=== PATIENT | female | born 1975 | race Caucasian/White ===

== ENCOUNTER 2022-07-04 11:23 | Outpatient (CLI) | payer BC, SELFPAY ==
--- NOTE | 2022-07-04 11:30 | CRLHL7_ITS ---
For Patients: As a result of the Century Cures Act, medical imaging exams and procedure reports are released immediately into your electronic medical record. You may view this report before your referring provider. If you have questions, please contact your health care provider. BILATERAL SCREENING MAMMOGRAM WITH COMPUTER-AIDED DETECTION AND TOMOSYNTHESIS TECHNIQUE: CC and MLO views were obtained. These mammographic images have been obtained using full-field digital technique. These mammographic images were interpreted with the benefit of computer-aided detection. Breast Tomosynthesis was used in this interpretation. COMPARISON FILM: 04/06/20, 08/13/18, 03/20/17. FINDINGS: There are scattered areas of fibroglandular density IMPRESSION: There is no radiographic evidence for malignancy. ASSESSMENT: BI-RADS Category 1: Negative RECOMMENDATION: Routine screening mammogram in 1 year. A lay language report of this examination will be provided to the patient. Rolando Murcia M.D. Diagnostic Radiologist [email or web address] BERTA/Dictated by: Rolando Murcia MD @ 07/04/2022 12:35:00 PM (Electronically Signed)
== END 2022-07-04 11:24 | disposition home or self-care (01) ==
LOC: MAMMO 11:26
PROVIDERS: Visit Provider Family Medicine
DX: Z12.31 Encounter for screening mammogram for malignant neoplasm of breast (principal)
CPT/HCPCS: 77063; 77067

== ENCOUNTER 2024-12-12 08:36 | Outpatient (CLI) | payer BC, SELFPAY ==
--- NOTE | 2024-12-12 09:26 | P.ANES_ITS ---
Anesthesia Charges Start Date/Time Anesthesia Start Date: 12/12/24 Anesthesia Start Time: 08:59 Stop Date/Time Anesthesia Stop Date: 12/12/24 Anesthesia Stop Time: 09:24 Coding CPT Codes CPT Codes: MYLES LWR INTST SCR COLSC - 89051 ([id number]) P2 - PATIENT W/MILD SYST DISEASE, QK - HEALTH AND FITNESS PROFESSOR 2-4 CNCRNT ANES PROC, QX - AGRICULTURE MECHANIC SVC W/ MD MED DIRECTION
--- NOTE | 2024-12-12 09:26 | W.ANESCHARGE ---
Anesthesia Charges Start Date/Time Anesthesia Start Date: 12/12/24 Anesthesia Start Time: 08:59 Stop Date/Time Anesthesia Stop Date: 12/12/24 Anesthesia Stop Time: 09:24 Coding CPT Codes CPT Codes: MYLES LWR INTST SCR COLSC - 91124 ([id number]) P2 - PATIENT W/MILD SYST DISEASE, QK - MORTGAGE LOAN UNDERWRITER 2-4 CNCRNT ANES PROC, QX - STORY WRITER SVC W/ MD MED DIRECTION
--- NOTE | 2024-12-12 09:28 | P.ANES_ITS ---
Anesthesia Charges Start Date/Time Anesthesia Start Date: 12/12/24 Anesthesia Start Time: 08:59 Stop Date/Time Anesthesia Stop Date: 12/12/24 Anesthesia Stop Time: 09:24 Coding CPT Codes CPT Codes: MYLES LWR INTST SCR COLSC - [id number] ([id number]) P2 - PATIENT W/MILD SYST DISEASE, QK - PUBLIC RELATIONS ASSISTANT 2-4 CNCRNT ANES PROC, QX - LEAN FACILITATOR SVC W/ MD MED DIRECTION
--- NOTE | 2024-12-12 09:28 | W.ANESCHARGE ---
Anesthesia Charges Start Date/Time Anesthesia Start Date: 12/12/24 Anesthesia Start Time: 08:59 Stop Date/Time Anesthesia Stop Date: 12/12/24 Anesthesia Stop Time: 09:24 Coding CPT Codes CPT Codes: MYLES LWR INTST SCR COLSC - [id number] ([id number]) P2 - PATIENT W/MILD SYST DISEASE, QK - FLOOR SERVICE WORKER SPRING 2-4 CNCRNT ANES PROC, QX - CADDY/CADDIE SUPERVISOR SVC W/ MD MED DIRECTION
== END 2024-12-12 08:37 | disposition home or self-care (01) ==
LOC: OP CLINIC 08:38
PROVIDERS: PCP Student in an Organized Health Care Education/Training Program; Visit Provider Internal Medicine Gastroenterology
DX: Z12.11 Encounter for screening for malignant neoplasm of colon (principal)
CPT/HCPCS: 00812; 45378; J2704

== ENCOUNTER 2025-04-30 08:30 | Outpatient (RCR) | payer BC, SELFPAY | END 2025-05-04 15:30 | disposition home or self-care (01) | PROVIDERS: PCP Student in an Organized Health Care Education/Training Program; Visit Provider Physician Assistant | DX: M76.61 Achilles tendinitis, right leg (principal); Z51.89 Encounter for other specified aftercare | CPT/HCPCS: 97110; 97112; 97140; 97161 ==